=== PATIENT | female | born 1960 | race Caucasian/White ===

== ENCOUNTER 2016-06-13 15:22 | Inpatient (IN) | payer MEDICARE, OTHER ==
--- NOTE | ~2016-06-13 | HP ---
Unit #: [id number] #: [id number] Patient: IKE MARSH [id number] [address] [place], [place] [address] [id number] I MR#: [id number] NAME: IKE MARSH. ROOM: 307 Age: 56 Sex: F Admission Date: 06/13/2016 : 1960 Attending Physician: Eddie Smith Primary Care Physician: Marni Perez M.D. HISTORY AND PHYSICAL HISTORY OF PRESENT ILLNESS Patient is a 56-year-old lady with desaturation in oxygen. The patient was having significant increase in lower extremity edema. The patient is on 3 liters nasal cannula anywhere at home for severe COPD. However, the patient has had about 15 to 16 pound weight gain in approximately two weeks. The patient has a remote history of multiple pneumonias and she has had a history of hypercapnic respiratory failure. The patient is being admitted for IV diuresis. Dr. Sanchez is being consulted. We will ask them to decide on the diuretic regimen. In the meantime, we are going to continue her COPD medication and we are going to continue treatment. PAST MEDICAL HISTORY Significant for: 1. Seizure disorder, apparently recurrent. 2. Migraine headaches. 3. Diabetes mellitus. 4. Hypothyroidism. 5. Hypertension. 6. History of TIA in 1996. 7. Hyperlipidemia. 8. Depression. 9. Gastroesophageal reflux disease. 10. Diverticular disease. PAST SURGICAL HISTORY Includes: 1. UPPP. 2. Cholecystectomy. 3. x3. 4. Several ventral hernia repairs. 5. Colonoscopy. 6. Cervical spine surgery. 7. Right knee replacement. 8. Bladder repair. HOME MEDICATIONS Include: 1. Zofran 8 mg p.o. t.i.d. 2. Daliresp 500 mcg daily. 3. Coreg 6.25 mg p.o. daily. 4. K-Dur 20 mEq daily. Unit #: [id number] #: [id number] Patient: IKE MARSH 5. Furosemide 40 mg p.o. daily. 6. Hydrochlorothiazide 25 mg daily. 7. Zanaflex 20 mg daily. 8. Humulin 70/30, unknown dosage daily on a sliding scale. 9. Aspirin 81 mg daily. 10. Levothyroxine 25 mcg daily. 11. Sumatriptan succinate 50 mg p.o. at headache onset, so p.r.n. 12. Symbicort 160/4.5 two puffs b.i.d. 13. Ventolin two puffs h.s. 14. Saxenda 3 mg subcu daily. 15. Dilantin 100 mg p.o. t.i.d. 16. Topamax 100 mg p.o. daily. 17. Topamax 200 mg q.p.m. 18. Klonopin 0.5 mg b.i.d. 19. Oxycodone 15 mg q.6 h. p.r.n. REVIEW OF SYSTEMS Positive for what is in the history of present illness otherwise is negative. PHYSICAL EXAMINATION VITAL SIGNS: T. current 98.2, pulse 89, respiratory rate 20, blood pressure 174/107, saturating 91% on 3 liters nasal cannula. HEENT: Extraocular movements are intact. Pupils equal round and reactive to light. NECK: Greater than 17 inches in circumference. LUNGS: Decreased breath sounds bilaterally. HEART: Regular rate, no gallop. ABDOMEN: Soft, nontender, nondistended. Decreased bowel sounds. EXTREMITIES: 2+ edema. DIAGNOSTIC STUDIES LABORATORY: White count 6.5, hemoglobin 13.7, platelets 164. Basic metabolic sodium 139, BUN 13, creatinine 0.6, potassium . BNP 147. Glucose 169. ASSESSMENT AND PLAN 1. Patient admitted for congestive heart failure exacerbation, being diuresed. Will continue current. 2. Chronic obstructive pulmonary disease exacerbation. She denies any bronchitis type symptoms. Therefore, will not put her on a systemic steroid. We will see if patient's oxygen improves as she is being weaned. Appreciate Dr. Sanchez's significant assistance. Dictated by Linda Duke/michael TD: 06/15/2016 21:17 Unit #: [id number] #: [id number] Patient: IKE MARSH JOB #: [id number] HISTORY AND PHYSICAL X Eddie Smith MD X HISTORY AND PHYSICAL
--- NOTE | ~2016-06-13 | CO ---
Unit #: [id number] #: [id number] Patient: IKE MARSH [id number] [address] [place], [place] [address] [id number] I MR#: [id number] NAME: IKE MARSH. ROOM: 307 Age: 56 Sex: F Admission Date: 06/13/2016 : 1960 Attending Physician: Yisel Smith M.D. Primary Care Physician: Marni Perez M.D. CONSULTATION REPORT REASON FOR CONSULTATION Congestive heart failure. HISTORY OF PRESENT ILLNESS This is a 56-year-old white female who was discharged from this facility on 05/28/2015 where she was admitted with COPD exacerbation and pneumonia. Since her discharge the patient states her dyspnea has worsened. She reports five pillow orthopnea and paroxysmal nocturnal dyspnea. She is unable to walk as far as to the nurses' station without shortness of breath. She has a cough that is nonproductive. No fever or chills. She denies an increase in her fluid intake. She says she has gained 15 pounds since her discharge. She also reports burning chest pain that accompanies her dyspnea when she ambulates. She has no resting chest pain. She gives a history of lung cancer. According to a prior CT of her chest there is a nodule measuring 1.3 cm in the anterior right lower lobe that is suspicious for malignancy. She has been followed by Dr. Randy Jean and is to undergo biopsy. She has been told she has had heart failure in the past. She also is known to have high blood pressure, high cholesterol and diabetes. Cardiac catheterization in 2014 shows normal coronaries, was noted for pulmonary hypertension. PAST MEDICAL HISTORY 1. Cardiac catheterization 10/25/2014 showed an ejection fraction equal to 55% with angiographically normal coronaries. 2. Two-D echocardiogram 07/18/2015 shows an ejection fraction equal to 55% with mild concentric left ventricular hypertrophy, mild tricuspid regurgitation and mild pulmonic valvular regurgitation, right ventricular systolic pressure of 40 to 50 mmHg, (technically limited study). 3. Diastolic heart failure. 4. Hypertension. 5. Hyperlipidemia. 6. Diabetes mellitus type 2. 7. Seizure disorder. 8. Obstructive sleep apnea, noncompliant with CPAP. 9. COPD. 10. TIA. 11. Hypothyroidism. 12. Thrombocytopenia. 13. Obesity. 14. Former smoker. PAST SURGICAL HISTORY Unit #: [id number] #: [id number] Patient: IEK MARSH 1. Hysterectomy. 2. Cholecystectomy. 3. Hernia repair. 4. Cervical spinal fusion. 5. Uvuloplasty. 6. Bladder surgery. 7. Right knee replacement. SOCIAL HISTORY The patient is and disabled. She quit smoking five years ago. She denies illicit drug and alcohol use. FAMILY HISTORY Both parents had congestive heart failure. ALLERGIES No known drug allergies. HOME MEDICATIONS Home medications from recent discharge summary 1. Zofran 8 mg t.i.d. p.r.n. 2. Daliresp 500 mcg daily. 3. Carvedilol 6.25 mg daily. 4. Potassium 20 mEq daily. 5. Furosemide 40 mg daily. 6. Hydrochlorothiazide 25 mg daily. 7. Zanaflex 2 mg daily. 8. Metformin 2000 mg daily. 9. Aspirin 81 mg daily. 10. Synthroid 0.025 mg daily. 11. Zocor 50 mg daily. 12. Symbicort two puffs inhaled b.i.d. 13. Combivent two puffs q.4 h. p.r.n. 14. Saxenda 3 mg daily. 15. Dilantin 100 mg t.i.d. 16. Topamax 200 mg q.h.s. and 100 mg q.a.m. 17. Klonopin 0.5 mg b.i.d. 18. OxyContin 15 mg q.i.d. p.r.n. REVIEW OF SYSTEMS CONSTITUTIONAL: Positive for weakness and fatigue. Reports a 15 pound weight gain over the last week and a half1. HEENT: No headache, hearing or visual changes or difficulty with swallowing. Negative for dizziness. CARDIOVASCULAR: Has chest pain described in the HPI. Denies palpitations. Has five pillow orthopnea. Positive for paroxysmal nocturnal dyspnea. No syncope or near syncope. RESPIRATORY: Positive for dyspnea at rest and on exertion. Reports nonproductive cough. GASTROINTESTINAL: No abdominal pain, nausea or vomiting. Reports increase in her abdominal girth. EXTREMITIES: Positive for lower extremity edema. PHYSICAL EXAMINATION VITAL SIGNS: Blood pressure 174/107, heart rate 89, temperature 98.2, BMI 38. GENERAL: This is an obese, 56-year-old, middle-aged white female who is in no acute distress. Unit #: [id number] #: [id number] Patient: IKE MARSH NEUROLGICAL: She is awake, alert and oriented, without focal weaknesses. NECK: Trachea is midline. No thyromegaly or lymphadenopathy. No jugular venous distention. HEART: S1, S2, heart sounds are normal. No murmurs or rubs or clicks. Regular rate and rhythm. LUNGS: Lungs are diminished. Breath sounds both lungs with severely reduced air entry. No rales, rhonchi or wheezing. ABDOMEN: Soft, obese, tenderness in the right upper quadrant. EXTREMITIES: With 1+ leg edema. SKIN: Warm and dry. DIAGNOSTIC STUDIES LABORATORY: Glucose 169, BUN 13, creatinine 0.6, sodium 139, potassium 4.0. BNP during her last admission 30. White count 6.5, hemoglobin 13.7, hematocrit 39.0, platelet count 164. IMAGING: Chest x-ray pending. CARDIOVASCULAR: EKG pending. IMPRESSION 1. Severe hypoxic respiratory failure secondary to a severe chronic obstructive pulmonary disease. 2. Doubt significant fluid overload. 3. Lung nodule in the right lung, question malignancy. 4. Chronic diastolic heart failure. 5. Normal coronaries per cardiac catheterization in 2015. 6. Preserved left ventricular systolic function with an ejection fraction of 55%. 7. Hypertension. 8. Hyperlipidemia. 9. Diabetes mellitus type 2. 10. History of seizure disorder. PLAN 1. Cardiology was consulted for congestive heart failure. BNP is currently pending. Feel the patient has a volume overload. Will treat with IV diuretics. 2. Decrease beta adama to help prevent bronchospasm. 3. Workup for pulmonary nodule. 4. Questionable steroids. 5. Will follow the patient with you. Thank you for allowing us to assist with this patient's care. Dictated by... Óscar Villegas A.P.R.N. for Murtaza Bergeron M.D. JAVIER/aggie TD: 06/13/2016 18:36 JOB #: [id number] Unit #: [id number] #: [id number] Patient: IKE MARSH CONSULTATION REPORT X Óscar Villegas APRN CONSULTATION REPORT
--- NOTE | ~2016-06-13 | CR4 ---
[facility] A Service of [facility] RADIOLOGY TEXT RESULTS PATIENT: IKE MARSH LOCATION: [facility] 307- : 56 UNIT #: [id number] AGE: [address]: Eddie Smith MD SEX: F ORDER DR: [id number] [facility] [address] [place], [place] [address] [id number] I MR#: [id number] Acc #: [id number] NAME: IKE MARSH : 1960 SEX: F STUDY DATE/TIME: 06/16/2016 13:04 [facility]: [facility] STUDY DESCRIPTION: CR Abdomen Flat Upright or Dec Ordering Physician: Yisel Smith M.D. Primary Care Physician: Marni Perez M.D. MEDICAL IMAGING REPORT This report is preliminary unless electronic signature is present EXAM Flat and upright views of the abdomen INDICATIONS Generalized abdominal pain and distension for the past 2 weeks. TECHNIQUE Supine and upright views abdomen and pelvis. COMPARISON None. FINDINGS No free air. Non-obstructive bowel gas pattern. Moderate amount of colonic stool and gas. IMPRESSION Moderate colonic stool and gas. Non-obstructive bowel gas pattern. Dictated by... Preston Starkey M.D. THIS IS AN ELECTRONICALLY VERIFIED REPORT Preston Starkey M.D. at 06/18/2016 6:59 AM EED/pcl TD: 06/16/2016 16:21 JOB #: [id number] MEDICAL IMAGING REPORT COPY
--- NOTE | ~2016-06-13 | CR63 ---
[facility] A Service of [facility] & [facility] RADIOLOGY TEXT RESULTS PATIENT: IKE MARSH LOCATION: [facility] 307- : 56 UNIT #: [id number] AGE: [address]: Eddie Smith MD SEX: F ORDER DR: [id number] [facility] [address] [place], [place] [address] [id number] I MR#: [id number] Acc #: [id number] NAME: IKE MARSH : 1960 SEX: F STUDY DATE/TIME: 06/16/2016 12:56 UNIT: [address] ROOM: [facility] STUDY DESCRIPTION: CR Chest 2 View Attending Physician: Eddie Smith Ordering Physician: Eddie Smith Primary Care Physician: Marni Perez M.D. MEDICAL IMAGING REPORT This report is preliminary unless electronic signature is present EXAM Two-view chest INDICATIONS Chest pain for the past 2 weeks. TECHNIQUE Frontal and lateral views of the chest. COMPARISON 06/13/2016. FINDINGS Large cardiomegaly. Low lung volumes. Mild bibasilar atelectasis. No significant pleural fluid or pneumothorax. IMPRESSION 1. Slightly low lung volumes and bibasilar atelectasis. 2. Cardiomegaly. No significant change from the prior. Dictated by... Preston Starkey M.D. THIS IS AN ELECTRONICALLY VERIFIED REPORT Preston Starkey M.D. at 06/18/2016 6:59 AM EED/pcl TD: 06/16/2016 16:19 JOB #: [id number] MEDICAL IMAGING REPORT COPY
--- NOTE | ~2016-06-13 | US8 ---
[facility] A Service of [facility] & [facility] RADIOLOGY TEXT RESULTS PATIENT: IKE MARSH LOCATION: [facility] 307- : 56 UNIT #: [id number] AGE: [address]: Eddie Smith MD SEX: F ORDER DR: [id number] [facility] [address] [place], [place] [address] [id number] I MR#: [id number] Acc #: [id number] NAME: IKE MARSH : 1960 SEX: F STUDY DATE/TIME: 06/17/2016 8:29 UNIT: [address] ROOM: [facility] STUDY DESCRIPTION: US Abdominal Wall/Quadrant Ordering Physician: Yisel Smith M.D. Primary Care Physician: Marni Perez M.D. MEDICAL IMAGING REPORT This report is preliminary unless electronic signature is present EXAM Abdominal lower quadrant screening ultrasound for ascites HISTORY Abdominal bloating and distention. COMPARISON STUDIES CT abdomen and pelvis 05/25/2016. FINDINGS No ascites seen on either exam. Dictated by... Luke Hernandez M.D. THIS IS AN ELECTRONICALLY VERIFIED REPORT Luke Hernandez M.D. at 06/21/2016 7:06 PM TEV/pcl TD: 06/17/2016 14:03 JOB #: [id number] MEDICAL IMAGING REPORT COPY
--- NOTE | ~2016-06-13 | EKG ---
PATIENT: IKE MARSH UNIT #: [id number] Ventricular Rate: 87 BPM Atrial Rate: 87 BPM P-R Interval: 160 ms QRS Duration: 82 ms Q-T Interval: 386 ms QTC Calculation(Bezet): 464 ms P [place]: 65 degrees Calculated R [place]: 98 degrees Calculated T [place]: 68 degrees Diagnosis Line: Normal sinus rhythm Diagnosis Line: Rightward axis Diagnosis Line: Nonspecific T wave abnormality Diagnosis Line: Prolonged QT Diagnosis Line: Abnormal ECG Diagnosis Line: When compared with ECG of 24-MAY-2016 11:57, Diagnosis Line: Nonspecific T wave abnormality no longer evident Diagnosis Line: in Inferior leads Diagnosis Line: T wave inversion less evident in Anterolateral Diagnosis Line: leads Diagnosis Line: Confirmed by JITENDRA KHOURY MD ([id number]) on Diagnosis Line: 06/14/2016 8:01:31 AM INTERPRETING MD: ABDI
--- NOTE | ~2016-06-13 | CR63 ---
[facility] A Service of [facility] & [facility] RADIOLOGY TEXT RESULTS PATIENT: IKE MARSH LOCATION: [facility] 307- : 56 UNIT #: [id number] AGE: [address]: Eddie Smith MD SEX: F ORDER DR: [id number] [facility] [address] [place], [place] [address] [id number] I MR#: [id number] Acc #: [id number] NAME: IKE MARSH : 1960 SEX: F STUDY DATE/TIME: 06/13/2016 19:20 UNIT: [address] ROOM: [facility] STUDY DESCRIPTION: CR Chest 2 View Attending Physician: Eddie Smith Ordering Physician: Murtaza Bergeron M.D. Primary Care Physician: Marni Perez M.D. MEDICAL IMAGING REPORT This report is preliminary unless electronic signature is present EXAM Chest x-ray, 06/13/2016 at 1920 hours. INDICATION Fluid on lungs. Shortness of air and fever. History of lung cancer. FINDINGS 2 views of the chest are compared with 05/24/2016. Heart remains enlarged. There is a small left pleural effusion. There is atelectasis or infiltrate in both lung bases. The mid to upper lungs are clear and there is no pneumothorax. The patient is status post cervical fusion. IMPRESSION Stable cardiomegaly with mild infiltrate or atelectasis in both bases and a small left effusion. Dictated by... Guy Johnson Jr., M.D. THIS IS AN ELECTRONICALLY VERIFIED REPORT Guy Johnson Jr., M.D. at 06/14/2016 5:30 AM JEANNIE/gill TD: 06/14/2016 05:04 JOB #: [id number] MEDICAL IMAGING REPORT COPY
--- NOTE | ~2016-06-13 | DS ---
Unit #: [id number] #: [id number] Patient: IKE MARSH [id number] [address] [facility]. [place], [place] [address] [id number] I MR#: [id number] NAME: IKE MARSH. ROOM: 307 Age: 56 Sex: F Admission Date: 06/13/2016 : 1960 Discharge Date: 06/18/2016 Attending Physician: Yisel Smith M.D. Primary Care Physician: Marni Perez M.D. DISCHARGE SUMMARY ADMITTING DIAGNOSES 1. Congestive heart failure exacerbation. 2. Chronic obstructive pulmonary disease exacerbation. 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 BRIEF HISTORY AND HOSPITAL COURSE The patient is a 56-year-old lady with a lot of desaturation. She was having significant increase in lower extremity edema and desaturation in the office. The patient was brought to the hospital. She is on three liters nasal cannula at home for severe COPD. The patient was having a 15 to 16 pound weight gain approximately past two weeks. She has a remote history of multiple pneumonia. She also has a history of significant hypercapnic respiratory failure. The patient is having no fevers, chills, cough, congestion or symptoms of upper respiratory tract infection. She is having progressive shortness of air. She is having increase cough but it is not productive. The patient is admitted for IV diuresis. The patient had a significant improvement in her hypoxia. She was on her home medications. Physical Therapy said the patient was close to her baseline, therefore, she can return home without any difficulty. She is having continued diastolic heart failure. The patient has diminished breath sounds and needs to increase her activity. The patient is being discharged on three liters nasal cannula. She has received four or five days of Rocephin while here for COPD exacerbation/pneumonia. The patient is now having more shortness of air and will increase her activity. The diastolic heart failure is being managed by Cardiology. The patient also has a right lung nodule which will require followup imaging. The patient is having relatively good control of her diabetes. The patient was not placed on steroids this hospitalization. DISCHARGE MEDICATIONS 1. 70/30 on sliding scale. 2. Saxenda 3 mg subcu daily. 3. Lisinopril 5 mg daily. 4. Dilantin 100 mg p.o. t.i.d. 5. Furosemide 40 mg p.o. b.i.d. 6. Zomig or sumatriptan succinate tablet 50 mg p.o. p.r.n. 7. Coreg 3.125 mg twice daily. 8. Omnicef 300 mg p.o. b.i.d. for three days. 9. Levothyroxine 25 mcg daily. 10. Zanaflex 2 mg daily. 11. Roflumilast 500 mg daily. Unit #: [id number] #: [id number] Patient: IKE MARSH 12. Potassium chloride 40 mEq p.o. daily. 13. Aldactone 12.5 mg p.o. daily. 14. Oxycodone 15 mg p.o. q.6 hours p.r.n. pain. 15. Aspirin 81 mg daily. 16. Klonopin 0.5 mg p.o. b.i.d. p.r.n. 17. Zofran 8 mg p.o. t.i.d. p.r.n. nausea. 18. Gemfibrozil 600 mg p.o. twice daily. 19. Topamax 200 mg every evening and 100 mg every morning. 20. Symbicort two puffs b.i.d. 21. Albuterol two puffs at bedtime and as needed. DIET No concentrated sweets. ACTIVITY As tolerated. FOLLOWUP With Dr. Shaw in two weeks. Follow up with Dr. Sanchez on August 17, 2016 at 11:30 a.m. Dictated by... Linda Duke/gonzalo TD: 06/19/2016 13:46 JOB #: [id number] DISCHARGE SUMMARY X Eddie Smith MD X DISCHARGE SUMMARY
--- NOTE | ~2016-06-13 | EKG ---
PATIENT: IKE MARSH UNIT #: [id number] Ventricular Rate: 86 BPM Atrial Rate: 86 BPM P-R Interval: 170 ms QRS Duration: 82 ms Q-T Interval: 396 ms QTC Calculation(Bezet): 473 ms P [place]: 58 degrees Calculated R [place]: 93 degrees Calculated T [place]: 69 degrees Diagnosis Line: Normal sinus rhythm Diagnosis Line: Rightward axis Diagnosis Line: Nonspecific T wave abnormality Diagnosis Line: Prolonged QT Diagnosis Line: Abnormal ECG Diagnosis Line: When compared with ECG of 13-JUN-2016 18:51, Diagnosis Line: (unconfirmed) Diagnosis Line: No significant change was found Diagnosis Line: Confirmed by JITENDRA KHOURY MD ([id number]) on Diagnosis Line: 06/14/2016 8:08:18 AM INTERPRETING MD: ABDI
--- NOTE | ~2016-06-13 | BMI ---
[facility] Nutrition Therapy DATE: 06/14/16 Patient: IKE MARSH Physician: CONNIE Address: [address] [place] [address] Room/Bed: [address] [place] [address], Zip: [place] [address] Admit Date: 06/13/16 Date of : 56 Height: Weight: 251 114 HIGH BMI NOTE: ANTHROPOMETRICS: HT: 64" WT: 114 KG BMI: 43.1 INTERVENTION: 1. 2 GRAM NA+/ FLUID RESTRICTION RECOMMENDATIONS: 1. ADD HEART HEALTHY DIET RESTRICTION IN ORDER TO PROMOTE GRADUAL WEIGHT LOSS. Respectfully, KYLAH GRACE RD, LD [facility] cc: client file
[~2016-06-13 15:22] MED LIST: ALBUTEROL MININEB NEB; ALBUTEROL17 GM INH; AMOXICILLIN500 M1 PO; ASPIRIN EC81 M1 PO; ASPIRIN81 M2 PO; ASPIRIN81 MG PO; ATARAX PO; CARVEDILOL6.25 MG PO; CEFTIN PO; CLONAZEPAM0.5 MG PO; COREG6.25 MG PO; DALIRESP500 MCG PO; DEPAKOTE; DESYREL50 MG PO; DIAZEPAM; DILANTIN; DILANTIN KAPSE100 MG PO; DILANTIN PO; DIOVAN160 MG DOB; FLEXERIL PO; FUROSEMIDE40 MG PO; GLUCOPHAGE500 M1 PO; HYDRALAZINE HCL50 MG PO; HYDROCHLOROTHIA25 MG PO; K-DUR20 ME1 PO; K-DUR20 ME2 PO; K-TAB ER20 MEQ PO; KCL; KLONOPIN0.5 M3 PO; LASIX; LASIX PO; LASIX80 MG PO; LEVAQUIN750 MG PO; LEVOFLOXACIN500 MG PO; LIPITOR20 MG PO; LOPID600 MG PO; LOPRESSOR PO; LOW DOSE ASPIRI81 M1 PO; LYRICA100 MG PO; MEDROL DOSEPAK4 MG PO; METFORMIN HCL1000 M1 PO; METFORMIN HCL1000 M2 PO; METFORMIN PO; METOPROLOL TAR25 MG PO; NITROSTAT0.4 MG SL; NOVOLOG100 U/ML SUBQ; OXYCODONE15 M1 DOB; OXYCODONE15 M1 PO; OXYCONTIN15 MG PO; PERCOCET; PERCOCET 5-3251 TAB PO; POTASSIUM99 M2 PO; PREDNISONE10 MG/DOSE PO; PREDNISONE50 MG PO; PROAIR HFA8.5 GM IH; PROMETHAZINE D118 ML PO; PROTONIX PO; PULMICORT90 MCG/AER IH; ROBITUSSIN A-C S5 ML PO; ROXICODONE15 MG PO; SAXENDA3 MG/0.5 M; SERTRALINE HCL100 M1 PO; SPIRIVA18 MCG INH; SUMATRIPTAN SUC50 M1 PO; SYMBICORT INH; SYNTHROID0.05 MG PO; SYNTHROID0.2 MG DOB; SYNTHROID0.2 MG PO; TIZANIDINE HCL2 M1 PO; TIZANIDINE HCL2 MG PO; TOPAMAX; TOPAMAX PO; TOPAMAX200 MG PO; TORADOL10 MG PO; TRAZODONE; TYLENOL325 M1 PO; ZANTAC; ZESTORETIC 20/21 TAB; ZITHROMAX PO; ZOCOR PO; ZOFRAN8 MG PO; ZOLOFT100 MG PO
[2016-06-13 17:19] LABS: HEMOGLOBIN 13.7 gm/dL (12.0-16.0); MEAN CELL VOLUME 98.8 FL (83-96); MEAN CORPUSCULAR HEMOGLOBIN 34.7 PG (28-34); MEAN CORPUSCULAR HGB CONC 35.1 g/dL (30-36); MEAN PLATELET VOLUME 7.2 FL (6.5-11.5); RED BLOOD COUNT 3.95 X10e (3.90-5.30); RED CELL DISTRIBUTION WIDTH 15.4 % (11.0-15.5); WHITE BLOOD COUNT 6.5 X10e3 (4.0-10.5)
[2016-06-13] MEDS ORDERED: DALIRESP500 MCG PO (17:29)
[2016-06-13] MEDS ORDERED: ONDANSETRON HCL8 MG PO (17:29)
[2016-06-13] MEDS ORDERED: COREG6.25 MG PO (17:31)
[2016-06-13] MEDS ORDERED: K-DUR20 ME2 PO (17:31)
[2016-06-13] MEDS ORDERED: HYDROCHLOROTHIA25 MG PO (17:32)
[2016-06-13] MEDS ORDERED: FUROSEMIDE40 MG PO (17:32)
[2016-06-13 17:33] LABS: BLOOD UREA NITROGEN 13 mg/dL (9-23); BUN/CREATININE RATIO 21.66; CALCIUM SERUM 8.9 mg/dL (8.4-10.2); CARBON DIOXIDE 32 mmol/L (22-31); CHLORIDE 100 mmol/L (100-111); CREATININE SERUM 0.6 mg/dL (0.6-1.4); GLOM FILT RATE Estimated ABOVE60 mL/min (>60); GLUCOSE FASTING 169 mg/dL (70-110); SODIUM 139 mmol/L (135-145)
[2016-06-13] MEDS ORDERED: TIZANIDINE HCL2 MG PO (17:33)
[2016-06-13] MEDS ORDERED: HUMULIN N100 UNIT/1 (17:33)
[2016-06-13] MEDS ORDERED: HUMULIN 70100 UNIT/2 SUBQ (17:37)
[2016-06-13] MEDS ORDERED: LEVOTHYROXINE25 MCG PO (17:38)
[2016-06-13] MEDS ORDERED: ASPIRIN81 MG PO (17:38)
[2016-06-13] MEDS ORDERED: SUMATRIPTAN SUC50 MG PO (17:39)
[2016-06-13] MEDS ORDERED: SYMBICORT INH (17:40)
[2016-06-13 17:41] LABS: ARTERIAL BLD GAS O2 SATURATION 94.7 % (90.0-100.0); ARTERIAL BLOOD GAS CARBOXY HB 1.4 %sat (0.0-9.0); ARTERIAL BLOOD GAS HCO3 35.2 mmol/L; ARTERIAL BLOOD GAS PO2 86.5 mmHg (80.0-100)
[2016-06-13 17:42] LABS: ARTERIAL BLOOD GAS ART SITE RIGHT RADIAL; ARTERIAL BLOOD GAS DELIVERY NASAL CANNULA; ARTERIAL BLOOD GAS FIO2 0.32 %; ARTERIAL BLOOD GAS PCO2 61.1 mmHg (35.0-45.0); ARTERIAL DRAW? YES
[2016-06-13] MEDS ORDERED: ALBUTEROL17 GM INH (17:42)
[2016-06-13] MEDS ORDERED: SAXENDA3 MG/0.5 M SUBQ (17:43)
[2016-06-13] MEDS ORDERED: DILANTIN PO (17:43)
[2016-06-13] MEDS ORDERED: TOPAMAX PO (17:44)
[2016-06-13] MEDS ORDERED: TOPAMAX200 MG PO (17:45)
[2016-06-13] MEDS ORDERED: KLONOPIN0.5 MG PO (17:58)
[2016-06-13] MEDS ORDERED: OXYCODONE15 M1 PO (22:42)
[2016-06-15 08:12] LABS: BASOPHIL% 0.4 % (0-2.5); EOSINOPHIL# 0.1 X10e3 (0-0.7); EOSINOPHIL% 1.6 % (0.0-7.0); HEMATOCRIT 38.3 % (35.0-45.0); HEMOGLOBIN 13.3 gm/dL (12.0-16.0); LYMPHOCYTE# 2.4 X10e3 (1.0-3.5); LYMPHOCYTE% 32.5 % (17.0-45.0); MEAN CELL VOLUME 100.6 FL (83-96); MEAN CORPUSCULAR HEMOGLOBIN 34.9 PG (28-34); MEAN CORPUSCULAR HGB CONC 34.7 g/dL (30-36); MONOCYTE# 0.5 X10e3 (0-1.0); MONOCYTE% 7.3 % (3.0-12.0); NEUTROPHIL# 4.2 X10e3 (1.5-7.1); NEUTROPHIL% 58.2 % (40-75); PLATELET COUNT 157 X10e3 (140-420); RED BLOOD COUNT 3.81 X10e (3.90-5.30); RED CELL DISTRIBUTION WIDTH 15.5 % (11.0-15.5); WHITE BLOOD COUNT 7.3 X10e3 (4.0-10.5)
[2016-06-15 08:18] LABS: DIFF IND NO
[2016-06-15 08:38] LABS: BUN/CREATININE RATIO 24.54; CALCIUM SERUM 8.7 mg/dL (8.4-10.2); CREATININE SERUM 1.1 mg/dL (0.6-1.4); GLOM FILT RATE Estimated 54.2 mL/min (>60); POTASSIUM 4.4 mmol/L (3.5-5.1)
[2016-06-16 05:46] LABS: BASOPHIL% 0.3 % (0-2.5); EOSINOPHIL# 0.1 X10e3 (0-0.7); EOSINOPHIL% 2.1 % (0.0-7.0); HEMATOCRIT 38.8 % (35.0-45.0); HEMOGLOBIN 12.9 gm/dL (12.0-16.0); LYMPHOCYTE# 1.9 X10e3 (1.0-3.5); LYMPHOCYTE% 32.2 % (17.0-45.0); MEAN CELL VOLUME 101.3 FL (83-96); MEAN CORPUSCULAR HEMOGLOBIN 33.6 PG (28-34); MEAN CORPUSCULAR HGB CONC 33.2 g/dL (30-36); MEAN PLATELET VOLUME 7.9 FL (6.5-11.5); MONOCYTE# 0.5 X10e3 (0-1.0); MONOCYTE% 8.7 % (3.0-12.0); NEUTROPHIL# 3.4 X10e3 (1.5-7.1); NEUTROPHIL% 56.7 % (40-75); PLATELET COUNT 148 X10e3 (140-420); RED BLOOD COUNT 3.83 X10e (3.90-5.30); RED CELL DISTRIBUTION WIDTH 15.6 % (11.0-15.5)
[2016-06-16 05:51] LABS: DIFF IND NO
[2016-06-16 06:36] LABS: BUN/CREATININE RATIO 25.38; CALCIUM SERUM 8.6 mg/dL (8.4-10.2); CREATININE SERUM 1.3 mg/dL (0.6-1.4); GLOM FILT RATE Estimated 44.7 mL/min (>60); POTASSIUM 4.8 mmol/L (3.5-5.1)
[2016-06-17 05:26] LABS: HEMOGLOBIN 12.7 gm/dL (12.0-16.0); MEAN CELL VOLUME 102.4 FL (83-96); MEAN CORPUSCULAR HEMOGLOBIN 34.3 PG (28-34); MEAN CORPUSCULAR HGB CONC 33.5 g/dL (30-36); MEAN PLATELET VOLUME 7.7 FL (6.5-11.5); RED BLOOD COUNT 3.71 X10e (3.90-5.30); RED CELL DISTRIBUTION WIDTH 15.6 % (11.0-15.5); WHITE BLOOD COUNT 5.9 X10e3 (4.0-10.5)
[2016-06-17 06:27] LABS: BUN/CREATININE RATIO 28.66; CALCIUM SERUM 8.9 mg/dL (8.4-10.2); CREATININE SERUM 1.5 mg/dL (0.6-1.4); GLOM FILT RATE Estimated 37.9 mL/min (>60); MAGNESIUM 2.5 mg/dL (1.6-3.0); POTASSIUM 4.5 mmol/L (3.5-5.1)
[2016-06-17 21:43] LABS: URINE SOURCE CLEAN CATCH
[2016-06-17 22:02] LABS: URINE APPEARANCE CLEAR; URINE BILIRUBIN NEG (NEG); URINE BLOOD NEG (NEG); URINE COLOR YELLOW; URINE GLUCOSE NEG (NEG); URINE KETONE NEG (NEG); URINE LEUKOCYTE ESTERASE NEG (NEG); URINE NITRATE NEG (NEG); URINE PROTEIN NEG (NEG); URINE SPECIFIC GRAVITY 1.018 (1.003-1.035); URINE UROBILINOGEN 0.2 MG/DL (NEG)
[2016-06-18 04:57] LABS: BUN/CREATININE RATIO 37.27; CALCIUM SERUM 9.1 mg/dL (8.4-10.2); CREATININE SERUM 1.1 mg/dL (0.6-1.4); GLOM FILT RATE Estimated 54.2 mL/min (>60)
[2016-06-18] MEDS ORDERED: KLOR-CON PO (18:36)
[2016-06-18] MEDS ORDERED: OMNICEF300 MG PO (18:40)
[2016-06-18] MEDS ORDERED: PRINIVIL5 MG PO (18:41)
[2016-06-18] MEDS ORDERED: ALDACTONE PO (18:42)
[2016-06-18] MEDS ORDERED: LASIX PO (18:42)
[2016-06-18] MEDS ORDERED: LOPID600 MG PO (18:43)
== END 2016-06-18 20:04 | disposition home or self-care (01) | DRG 291 ==
LOC: C3A PCU 15:22
PROVIDERS: Internal Medicine Pulmonary Disease; Nurse Practitioner
DX: I11.0 Hypertensive heart disease with heart failure (principal); J96.01 Acute respiratory failure with hypoxia; J44.1 Chronic obstructive pulmonary disease with (acute) exacerbation; D69.6 Thrombocytopenia, unspecified; E66.01 Morbid (severe) obesity due to excess calories; I50.33 Acute on chronic diastolic (congestive) heart failure; G40.909 Epilepsy, unspecified, not intractable, without status epilepticus; G43.909 Migraine, unspecified, not intractable, without status migrainosus; E11.9 Type 2 diabetes mellitus without complications; E03.9 Hypothyroidism, unspecified; E78.5 Hyperlipidemia, unspecified; F32.9 Major depressive disorder, single episode, unspecified; K21.9 Gastro-esophageal reflux disease without esophagitis; K57.90 Diverticulosis of intestine, part unspecified, without perforation or abscess without bleeding; Z86.73 Personal history of transient ischemic attack (TIA), and cerebral infarction without residual deficits; Z90.49 Acquired absence of other specified parts of digestive tract; Z96.651 Presence of right artificial knee joint; Z79.4 Long term (current) use of insulin; Z79.82 Long term (current) use of aspirin; I08.8 Other rheumatic multiple valve diseases; Z91.19 Patient's noncompliance with other medical treatment and regimen; Z90.710 Acquired absence of both cervix and uterus; R91.1 Solitary pulmonary nodule
CPT/HCPCS: 36600; 71020; 74020; 76705; 80048; 81003; 82308; 82803; 82947; 83735; 83880; 84484; 85025; 85027; 87086; 93005; 94640; 94664; 94760; 97161; G8978-GP; G8979-GP; G8980-GP; J0696; J1650; J1815; J1940; J2270

== ENCOUNTER 2016-08-29 15:20 | Inpatient (IN) | payer MEDICARE, OTHER ==
--- NOTE | ~2016-08-29 | CT71 ---
[facility] A Service of [facility] RADIOLOGY TEXT RESULTS PATIENT: IKE MARSH LOCATION: [facility] [place] [facility] 576-01 : 56 UNIT #: [id number] AGE: [address]: Stephanie Solitario MD SEX: F ORDER DR: [id number] [facility] [address] [place], [place] [address] [id number] I MR#: [id number] Acc #: [id number] NAME: IKE MARSH : 1960 SEX: F STUDY DATE/TIME: 08/29/2016 17:35 UNIT: [facility] [place] [facility] ROOM: [facility] STUDY DESCRIPTION: CT Head Wo Contrast Attending Physician: Patricia Carcamo M.D. Ordering Physician: Myron Dye M.D. Primary Care Physician: Marni Perez M.D. MEDICAL IMAGING REPORT This report is preliminary unless electronic signature is present EXAM CT brain without contrast media, 08/29/2016 COMPARISON 04/25/2016 HISTORY SUPPLIED Shortness of breath, hypotension, headache for 3 days. TECHNIQUE Axial imaging of the brain was performed without contrast media and compared directly to the patient's most recent study of April 25. This CT exam was performed with one or more of the following radiation dose reduction techniques: automatic exposure control, adjustment of mA and/or kV according to patient size, and iterative reconstruction. FINDINGS Intracranially the ventricles and CSF-containing spaces are normal. No intra or extraaxial mass lesions, fluid collections or mass effect are seen. No focal areas of low attenuation or evidence of acute hemorrhage. There is a prominent perivascular space on the left in the inferior basal ganglia. Bone windows again show evidence of extensive left maxillary sinus disease as well as chronic right maxillary sinus disease. Question is raised of polyps in the nasopharynx on the left as well. CONCLUSION 1. Negative noncontrast CT of the brain. 2. Chronic maxillary sinus disease with complete opacification of the left maxillary sinus which is unchanged. Question is raised of [facility] A Service of [facility] RADIOLOGY TEXT RESULTS PATIENT: IKE MARSH LOCATION: [facility] [place] [facility] 576-01 : 56 UNIT #: [id number] AGE: [address]: Stephanie Solitario MD SEX: F ORDER DR: polyps in the left side and nasopharynx posteriorly. Consider ENT evaluation as an outpatient. Dictated by... Jonny Lao M.D. THIS IS AN ELECTRONICALLY VERIFIED REPORT Jonny Lao M.D. at 08/31/2016 4:41 PM SIDDHARTHA/gill TD: 08/29/2016 21:46 JOB #: [id number] MEDICAL IMAGING REPORT Page 1 of 1 COPY
--- NOTE | ~2016-08-29 | CO ---
Unit #: [id number] #: [id number] Patient: IKE MARSH [id number] [facility] [address] [facility]. [place], [place] [address] [id number] MR#: [id number] NAME: IKE MARSH ROOM: 576 Age: 56 Sex: F Admission Date: 08/29/2016 : 1960 Attending Physician: Stephanie Solitario M.D. Primary Care Physician: Marni Perez M.D. Consultation Date: 08/30/2016 CONSULTATION REPORT CONSULTING PHYSICIAN Dr. Patricia Carcamo. REASON FOR CONSULT Multiple seizures. PATIENT IDENTIFICATION This is a 56-year-old right-handed female evaluated in room [address] [facility]. SOURCE OF INFORMATION Obtained from the patient as well as the medical record. HISTORY OF PRESENT ILLNESS This is a 56-year-old right-handed female with a past medical history of COPD, chronic respiratory failure, CHF, migraines, diabetes mellitus type 2, hypertension, hyperlipidemia, TIA, seizure disorder, hypothyroidism who presents to [facility] with complaints of shortness of air. 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 She reports that she is having multiple seizures almost daily. She states "I have seven different types of seizures." She has been seen here in the past, last by Dr. Antony in December 2015. At that time, she was on three antiepileptics and was started on Lyrica. She is not currently on Lyrica and she states she does not recall ever being on that medication. She states she was instructed to follow up with [facility], though she states she was not able to meet her appointment as she was in the hospital at that time. She states she is now on the waiting list to be seen at [facility]. She states that she was diagnosed with seizures at the age of 38. She is now 56. She states that she initially saw Dr. Waldrop and did epilepsy monitoring and had no abnormalities there. She states she was continued on seizure medication and went to see a different physician. She reports that she does not remember who that was. She states that she was doing well with that physician on the medicines she was on. She states she was on Dilantin, Depakote, and Topamax and did not have seizures for several years. She was eventually weaned off her medications, she states. She reports that she then started having seizures again last year and is having increased frequency. She states she is compliant with her Dilantin though her level on this admission is less than 2.5. Her level in May was less than 2.5. Her level in April was less than 2.5. It looks like her level in 2005 was less than 2. She reports compliance but states that she "pees a lot of her medicine out on Lasix." She denies missing her medications otherwise and is Unit #: [id number] #: [id number] Patient: IKE MARSHant that she takes her medication. Her med rec shows that she is on Dilantin 100 mg t.i.d. though she states she takes a 100 mg pill twice a day. She states that her PCP manages her seizure medications at this time while she is waiting to get into the epilepsy clinic. She had a head CT done here without contrast yesterday that is negative. It does show chronic maxillary sinus disease with complete opacification of the left maxillary sinus unchanged, possible polyps on the left side and nasopharynx posteriorly. Consider ENT evaluation as an outpatient. Otherwise, her brain is normal. She states that she has not ever had a MRI of the brain and that she cannot have one as she had a metal plate placed by Dr. Castañeda 20 years ago. She states that she was told by him that she could never have a MRI and she refused to have a MRI. Her urine tox screen is unremarkable. She states that she has chronic migraines and does have a mild headache currently but denies any other neurologic symptoms and states that she feels pretty good. She is exhibiting some shortness of air with ambulation and she is being treated by pulmonology for related diagnoses. She reports she had a seizure event yesterday that was generalized with loss of consciousness. She states that she had incontinence and postictal state. She states that she was initially confused and fatigued. She reports that she has "seven different types of seizures." She states that she sometimes "will talk out of her head." She states many times she has generalized events with loss of consciousness; however, she states some events she can hear everything going on around her even whenever she passes out. However, sometimes she states that she completely loses consciousness and does not hear anything and with those events, she is fatigued and confused. She states that she has no trouble tolerating her Topamax and that she takes those for seizures as well. PAST MEDICAL HISTORY 1. Admission to [facility], June 13 through June 18, 2016 for CHF and COPD exacerbation. 2. Chronic respiratory failure on 3 L of oxygen per nasal cannula and COPD, followed by Dr. Smith. 3. Congestive heart failure. She had an echocardiogram on July 10, 2015, that showed an ejection fraction of 55%. She has been followed by [facility] in the past. 4. Seizure disorder. Please see details above for her seizure disorder. Reportedly, last seizure was yesterday. She states that she has been having seizures almost daily, though not every day for the last nine months. 5. Migraines: She states are pretty well controlled. 6. Diabetes mellitus type. 7. Hypothyroidism. 8. Hypertension. 9. Hyperlipidemia. 10. History of TIA in the remote past, details unclear. 11. GERD. 12. Depression. 13. Diverticular disease. 14. Morbid obesity. 15. Uvuloplasty. 16. Bladder surgery. 17. Right knee surgery. 18. Hysterectomy. 19. Hernia repair. 20. Cholecystectomy. 21. Cervical spinal fusion. Unit #: [id number] #: [id number] Patient: IKE MARSH ALLERGIES No known drug allergies. HOME MEDICATIONS 1. Zofran 8 mg p.o. t.i.d. 2. Daliresp 500 mcg p.o. daily. 3. Tizanidine 2 mg p.o. daily. 4. Humulin 70/30 insulin per sliding scale with meals. 5. Aspirin 81 mg p.o. daily. 6. Levothyroxine sodium 25 mcg p.o. daily. 7. Sumatriptan 50 mg p.o. for migraine onset. 8. Symbicort 160/4.5 mcg two puffs inhalation b.i.d. 9. Ventolin two puffs inhalation at bedtime. 10. Saxenda 3 mg subcutaneous daily. 11. Dilantin 100 mg p.o. b.i.d. per the patient. 12. Topamax 100 mg daily with 200 mg at night. 13. Klonopin 0.5 mg p.o. b.i.d. p.r.n. anxiety. 14. Oxycodone 15 mg p.o. q.6 hours p.r.n. pain. 15. Potassium chloride 40 mEq p.o. daily. 16. Omnicef 300 mg p.o. b.i.d. for possible pneumonia x3 days. 17. Prinivil 5 mg p.o. daily. 18. Furosemide 40 mg p.o. b.i.d. 19. Aldactone 25 mg p.o. daily. 20. Lopid 600 mg p.o. b.i.d. FAMILY HISTORY Noncontributory to the presenting condition. She denies a family history of epilepsy or seizures. SOCIAL HISTORY The patient is and lives with her . She quit smoking five years ago. She walks without assistance. She denies illicit drug use or alcohol abuse. REVIEW OF SYSTEMS A 14-point review of systems was done. Pertinent positives were as discussed above, otherwise negative. PHYSICAL EXAMINATION VITAL SIGNS: Temperature 99.1, otherwise she has been afebrile on this admission. Pulse 79, respirations 20, blood pressure 124/76, oxygen saturation 93% on 3 L. Blood pressure on arrival is 145/71. Height 5 feet 3 inches, weight 265 pounds. BMI is 47. NEUROLOGIC: Patient is awake, alert, and oriented to person, place, and time as well as event. She has no right/left confusion. No finger agnosia. No aphasia, dysarthria, or apraxia. Her general fund of knowledge is intact. She can follow commands without difficulty and have normal discussion and answer questions appropriately. CRANIAL NERVES: She demonstrates full pinto of vision. Eyes are conjugate without ptosis or nystagmus. Extraocular movements are intact. Sensation of the face and scalp is intact. Strength of muscles of facial expression is intact. Hearing is intact to finger rub and conversation. Tongue is midline. Uvula is midline. Palate elevation is normal. Head turning and shoulder shrug is unremarkable. Neck is supple. MOTOR: She demonstrates normal bulk and tone. Strength is equal, 5/5 in all extremities. SENSORY: Intact. Unit #: [id number] #: [id number] Patient: IKE MARSH GAIT: Essentially unremarkable. She does have difficulty due to some shortness of breath with ambulating. I did assist her with ambulating to the bedside commode after my evaluation and she did so independently but did complain of shortness of air. Romberg deferred. REFLEXES: Unable to illicit. Toes were mute. COORDINATION: No past pointing seen. DIAGNOSTIC STUDIES Please see above. LABORATORY: Troponin less than 0.03. BMP unremarkable other than a CO2 of 32, glucose 263. TSH 0.49. PT 10.4, INR 1. White blood cell count 6.4, hemoglobin 12.1, hematocrit 37.4, platelet count 194,000. CK 32. Urine drug screen unremarkable. Urinalysis: Two plus leuks, 25-50 white blood cells, negative for bacteria. Culture pending. BNP 167. Repeat troponin less than 0.05. A pH 7.347, pCO2 of 56.8, pO2 of 78.5, bicarbonate 31.1. On 3 L nasal cannula on arrival. White blood cell count 7.4, hemoglobin 11.8, hematocrit 36, platelet count 199,000. PT 10.2, INR 1, PTT 24.2. IMPRESSION 1. Recurrent seizures plus/minus pseudoseizures. 2. Subtherapeutic Dilantin less than 2.5 on repeated admissions. The patient reports compliance. 3. Chronic obstructive pulmonary disease exacerbation. 4. Acute on chronic respiratory failure. 5. Possible urinary tract infection, culture pending. 6. Migraines. 7. History of remote transient ischemic attack. Patient is on aspirin. PLAN The patient is stable with no current seizure activity. She is adamant that she takes Dilantin, though she has essentially no Dilantin in her system on repeated admissions. She states that she is able to tolerate and has been controlled in the past with it. Will load her with 1 g of Dilantin and change her dosing to 300 mg p.o. nightly. Will increase her Topamax to 200 mg p.o. b.i.d. Will request an EEG. We recommend a MRI as she has not had one, though she states she cannot tolerate due to a metal plate in her neck and was told by Dr. Castañeda that she could never have a MRI. She refuses a MRI at this time or evaluation for MRI. Will follow closely. Further recommendations pending workup and further clinical course. Recommend outpatient epilepsy monitoring and evaluation when possible. Please call for any questions or issues. Case discussed with Dr. Hickman and he agrees with above. We will follow along with you. Dictated by... Linda Boykin A.P.R.N. for Linda Santiago/tiffanie TD: 08/30/2016 10:53 JOB #: [id number] Unit #: [id number] #: [id number] Patient: IKE MARSH CONSULTATION REPORT Page 1 of 1 X Linda Boykin BEAN DUMPER X CONSULTATION REPORT
--- NOTE | ~2016-08-29 | EE ---
Unit #: [id number] #: [id number] Patient: IKE MARSH [id number] [address] [address] [id number] I MR#: [id number] NAME: IKE MARSH : 1960 SEX: F STUDY DATE/TIME: UNIT: [facility] ROOM: 576 STUDY DESCRIPTION: EEG Attending Physician: Stephanie Solitario M.D. Primary Care Physician: Marni Perez M.D. NEURODIAGNOSTICS REPORT CHIEF COMPLAINT Seizures. DESCRIPTION EEG was obtained in the awake and asleep states using the 10-20 international montage system with photic stimulation. EEG showed well organized 7 Hz range background activity from posterior regions, which is symmetric between the hemispheres. There were no epileptiform discharges present, and there were no focal signs. There was no response to photic stimulation. Normal stage II sleep was captured during the recording. IMPRESSION Findings are consistent with mild diffuse cerebral dysfunction. However, there is no evidence for increased seizure tendency on this recording. Dictated by... Linda Santiago/aspen TD: 08/31/2016 07:48 JOB #: [id number] NEURODIAGNOSTICS REPORT Page 1 of 1 X Jeremy Hickman MD NEURODIAGNOSTICS REPORT
--- NOTE | ~2016-08-29 | HP ---
Unit #: [id number] #: [id number] Patient: IKE MARSH [id number] [address] [place], [place] [address] [id number] I MR#: [id number] NAME: IKE MARSH. ROOM: 03157 Age: 56 Sex: F Admission Date: 08/29/2016 : 1960 Attending Physician: Patricia Carcamo M.D. Primary Care Physician: Marni Perez M.D. HISTORY AND PHYSICAL CHIEF COMPLAINT Short of air, hypotension. HISTORY OF PRESENT ILLNESS The patient is a 56-year-old female with past medical history of multiple medical problems including chronic respiratory failure, COPD, CHF, seizures, diabetes, migraine headaches, hypothyroidism, hypertension, hyperlipidemia, TIA, GERD, depression, diverticular disease, who presented to the emergency department for evaluation of the above. The patient states that she has had a two to three-day history of increasing shortness of breath and nonproductive cough. She reports intermittent chills but no documented fever. She denies any chest pain. She has had decreased appetite but no vomiting or diarrhea. She noticed increasing lower extremity swelling yesterday. She does not typically weigh herself. At home, she noticed that her oxygen saturation was in the 70s on her home [address] Smith's office and was told to come to the emergency department for evaluation. Upon arrival in the emergency department, temperature was 98.6, oxygen saturation is documented as 82% on room air, blood pressure 145/71, respiratory rate 24. Chest x-ray shows no acute abnormality. She was given 125 mg Solu-Medrol in the emergency department. She is being admitted to [facility] for evaluation and further treatment. PAST MEDICAL HISTORY 1. Admission to [facility] 06/13 through 06/18/2016 for CHF and COPD exacerbation. 2. COPD followed by Dr. Smith. 3. Chronic respiratory failure on 3 liters of oxygen per nasal cannula continuous. 4. Congestive heart failure. Per consultation note from Cardiology from 06/13/2016, the patient had an echocardiogram 07/10/2015 that showed an ejection fraction of 55%. She has seen Dr. Ummat in the past. 5. Seizure disorder. The patient states that she initially had a seizure at the age of 39 and was on antiepileptic medication. She then went about six years without any seizures. She was taken off her antiepileptic medication and continued to not have any seizures until about a year ago. She has been having frequent seizures since that time. Her primary care physician has been managing her seizures. She is reportedly on Dilantin. She has not been able to see a neurologist. 6. Migraine headaches. Unit #: [id number] #: [id number] Patient: IKE MARSH 7. Diabetes. 8. Hypothyroidism. 9. Hypertension. 10. Hyperlipidemia. 11. History of TIA. 12. GERD. 13. Depression. 14. Diverticular disease. PAST SURGICAL HISTORY 1. Uvuloplasty. 2. Bladder surgery. 3. Right knee surgery. 4. Hysterectomy. 5. Hernia repair. 6. Cholecystectomy. 7. Cervical spinal fusion. ALLERGIES No known allergies. HOME MEDICATIONS Include: 1. Ondansetron. 2. Daliresp. 3. Tizanidine. 4. Humulin 70/30. 5. Aspirin. 6. Levothyroxine. 7. Sumatriptan. 8. Symbicort. 9. Ventolin. 10. Saxenda. 11. Dilantin. 12. Topamax. 13. Klonopin. 14. Oxycodone. 15. Potassium. 16. Prinivil. 17. Lasix. 18. Aldactone. 19. Gemfibrozil. Home medications will need to be reviewed and verified. SOCIAL HISTORY The patient lives with her . She quit smoking five years ago. She walks without assistance. Her code status is a FULL CODE. FAMILY HISTORY Notable for both parents having diabetes, COPD, and CHF. REVIEW OF SYSTEMS A complete review of systems is negative except as indicated in the HPI. The patient and her state that she has had at least two seizures within the past 24 hours, the most recent of which was yesterday. PHYSICAL EXAMINATION Unit #: [id number] #: [id number] Patient: IKE MARSH VITAL SIGNS: Temperature 98.6, pulse 92, respirations 24, blood pressure 145/71, oxygen saturation is 82% on room air. GENERAL: The patient is a female who is awake and alert in no acute distress. HEENT: Head is atraumatic. Mucous membranes are moist. NECK: Supple. Trachea is midline. LUNGS: Demonstrate inspiratory and expiratory wheezes. Breathing is mildly labored with conversation. HEART: Regular rate and rhythm. ABDOMEN: Obese, soft, nontender. Bowel sounds present in all four quadrants. EXTREMITIES: Nontender. She does have 1+ pitting edema. NEUROLOGIC: Patient is awake and alert. She is oriented x3. She follows commands. PSYCHIATRIC: Patient has a flat affect. SKIN OF EXAMINED AREAS: Warm and dry. DIAGNOSTIC STUDIES LABORATORY: Complete blood count notable for hemoglobin 11.8, hematocrit 36. INR 1. Arterial blood gas shows pH 7.347, pCO2 of 56.8, pO2 of 78.5 on 3 liters. Comprehensive metabolic panel notable for glucose 181. Dilantin level is less than 2.5. Alcohol level less than 5. BNP 167. Troponin less than 0.05. Urinalysis notable for 2+ leukocyte esterase, 25-50 wbc's. Urine toxicology screen is negative. IMAGING: Chest x-ray shows nothing acute. CT of the head was done and showed a possible left nasopharyngeal polyp. CARDIOVASCULAR: EKG shows normal sinus rhythm with a rate of 84 beats per minute. ASSESSMENT The patient is a 56-year-old female with: 1. Jqxvd-jf-fejrqnh respiratory failure, hypoxic. 2. Chronic obstructive pulmonary disease exacerbation. The patient received Solu-Medrol in the emergency department. 3. Congestive heart failure with ejection fraction as noted above. 4. Seizures. The patient has had multiple seizures. She is reportedly taking Dilantin but Dilantin level is less than 2.5 on laboratory. 5. Urinary tract infection. 6. Diabetes. 7. Migraine headaches. 8. Hypothyroidism. 9. Hypertension. 10. Hyperlipidemia. 11. History of transient ischemic attack. 12. Gastroesophageal reflux disease. 13. Depression. 14. Diverticular disease. 15. Former smoker. 16. 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 The patient will need an ENT followup as an outpatient. PLAN 1. Admit to intermediate level. 2. 2-gram sodium, 1800 mL fluid restricted, heart healthy consistent carb diet. Unit #: [id number] #: [id number] Patient: IKE MRASH 3. Supplemental oxygen. 4. Solu-Medrol 80 mg IV q.12 h. 5. DuoNeb q.4 h. while awake and q.2 h. p.r.n. 6. Mucinex 600 mg p.o. b.i.d. 7. Strict I's and O's. 8. Daily weights. 9. Consult Dr. Smith regarding COPD exacerbation. 10. Urine culture and sensitivity on urine in the lab. 11. Rocephin 2 grams IV daily pending results of urine culture with first dose now. 12. Low-dose sliding scale insulin with Accu-Cheks. 13. Seizure precautions. 14. Consult Dr. Antony regarding multiple seizures. 15. TSH. 16. Serial cardiac enzymes. 17. Neuro checks. 18. SCDs for DVT prophylaxis. 19. Protonix for GI prophylaxis since the patient will be on Solu-Medrol. 20. Repeat labs in the morning. 21. Additional workup and consultants based on above. Dictated by Linda Vela/michael TD: 08/29/2016 20:45 JOB #: [id number] HISTORY AND PHYSICAL Page 1 of 1 X Patricia Carcamo MD X HISTORY AND PHYSICAL
--- NOTE | ~2016-08-29 | EKG ---
PATIENT: IKE MARSH UNIT #: [id number] Ventricular Rate: 84 BPM Atrial Rate: 84 BPM P-R Interval: 160 ms QRS Duration: 82 ms Q-T Interval: 382 ms QTC Calculation(Bezet): 451 ms P Austin: 60 degrees Calculated R Austin: 89 degrees Calculated T Austin: 63 degrees Diagnosis Line: Normal sinus rhythm Diagnosis Line: Nonspecific T wave abnormality Diagnosis Line: Otherwise normal ECG Diagnosis Line: When compared with ECG of 14-JUN-2016 06:08, Diagnosis Line: No significant change was found Diagnosis Line: Confirmed by HUNTER PERAZA MD ([id number]) on 08/30/2016 Diagnosis Line: 10:03:00 AM INTERPRETING MD: KARMEN WAHL
--- NOTE | ~2016-08-29 | EE ---
Unit #: [id number] #: [id number] Patient: IKE MARSH [id number] [address] [address] [id number] I MR#: [id number] NAME: IKE MARSH : 1960 SEX: F STUDY DATE/TIME: 08/30/2016 UNIT: [facility] ROOM: 576 STUDY DESCRIPTION: EEG Attending Physician: Stephanie Solitario M.D. Primary Care Physician: Marni Perez M.D. NEURODIAGNOSTICS REPORT CHIEF COMPLAINT Seizures. DESCRIPTION EEG was obtained in the awake and asleep states using the 10-20 international montage system with photic stimulation. EEG showed well organized 7 Hz range background activity from posterior regions, which was symmetric between the hemispheres. There were no epileptiform discharges present, and there were no focal signs. Response to photic stimulation was not present. Normal stage II sleep was captured during the recording. IMPRESSION Abnormal EEG consistent with mild diffuse cerebral dysfunction; however, there is no evidence for increased seizure tendency on this recording. Dictated by... Linda Santiago/aspen TD: 08/31/2016 07:55 JOB #: [id number] NEURODIAGNOSTICS REPORT Page 1 of 1 X Jeremy Hickman MD NEURODIAGNOSTICS REPORT
--- NOTE | ~2016-08-29 | CR72 ---
[facility] A Service of [facility] & [facility] RADIOLOGY TEXT RESULTS PATIENT: IKE MARSH LOCATION: [facility] 576-01 : 56 UNIT #: [id number] AGE: [address]: Patricia Carcamo MD SEX: F ORDER DR: [id number] [facility] [address] [place], [place] [address] [id number] I MR#: [id number] Acc #: [id number] NAME: IKE MARSH : 1960 SEX: F STUDY DATE/TIME: 08/29/2016 17:30 UNIT: [facility] ROOM: [facility] STUDY DESCRIPTION: CR Chest Single View Portable Attending Physician: Patricia Carcamo M.D. Ordering Physician: Myron Dye M.D. Primary Care Physician: Marni Perez M.D. MEDICAL IMAGING REPORT This report is preliminary unless electronic signature is present EXAM Portable chest 08/29/2016 HISTORY 56-year-old female with shortness of air and cough beginning 2 days ago. COMPARISON Chest 06/16/2016 FINDINGS Frontal chest demonstrates clear lungs. No pleural effusion or pneumothorax. Prominent left epicardial fat pad as compared with CT abdomen and pelvis 05/25/2016. Heart size is within normal limits. Mediastinum and pulmonary vasculature are unremarkable. IMPRESSION No acute cardiopulmonary findings. Dictated by... Jamir Araujo M.D. THIS IS AN ELECTRONICALLY VERIFIED REPORT Jamir Araujo M.D. at 08/29/2016 10:54 PM PATRICIA/jamila TD: 08/29/2016 21:49 JOB #: [id number] MEDICAL IMAGING REPORT Page 1 of 1 COPY
--- NOTE | ~2016-08-29 | BMI ---
[facility] Nutrition Therapy DATE: 08/30/16 Patient: IKE MARSH Physician: SAYRA Address: [address] [facility] Room/Bed: [address] [place] [address], Zip: [place] [address] Admit Date: 08/29/16 Date of : 56 Height: 5 3 Weight: 265 120.4 HIGH BMI NOTE: DX: 56 yo female admitted for acute on chronic respiratory failure ANTHROPOMETRICS: Ht: 5'3" Wt: 120.5 kg (265#) BMI: 47.1 INTERVENTION: 1. HH + CC + 2 gm Na RECOMMENDATIONS: 1. Continue with healthy heart + consistent carb + 2 gram sodium diet to promote gradual weight loss towards healthy BMI. RD will follow hospital course. Respectfully, Kathy Mendieta, Security Engineer Letitia Loving RD, LD [employer] and Nutritional Services [facility] cc: client file
[~2016-08-29 15:20] MED LIST changes: +ALDACTONE PO; +HUMULIN 70100 UNIT/2 SUBQ; +HUMULIN N100 UNIT/1; +KLONOPIN1 MG PO; +KLOR-CON PO; +LEVOTHYROXINE25 MCG PO; +OMNICEF300 MG PO; +ONDANSETRON HCL8 MG PO; +PRINIVIL5 MG PO; +SAXENDA3 MG/0.5 M SUBQ; +SUMATRIPTAN SUC50 MG PO
[2016-08-29 17:13] LABS: BASOPHIL# 0.1 X10e3 (0-0.3); EOSINOPHIL% 0.6 % (0.0-7.0); HEMOGLOBIN 11.8 gm/dL (12.0-16.0); LYMPHOCYTE# 2.3 X10e3 (1.0-3.5); LYMPHOCYTE% 30.9 % (17.0-45.0); MEAN CELL VOLUME 101.2 FL (83-96); MEAN CORPUSCULAR HEMOGLOBIN 33.1 PG (28-34); MEAN CORPUSCULAR HGB CONC 32.7 g/dL (30-36); MEAN PLATELET VOLUME 8.1 FL (6.5-11.5); MONOCYTE# 0.6 X10e3 (0-1.0); MONOCYTE% 8.5 % (3.0-12.0); NEUTROPHIL# 4.4 X10e3 (1.5-7.1); PLATELET COUNT 199 X10e3 (140-420); RED BLOOD COUNT 3.55 X10e (3.90-5.30); RED CELL DISTRIBUTION WIDTH 13.6 % (11.0-15.5); WHITE BLOOD COUNT 7.4 X10e3 (4.0-10.5)
[2016-08-29 17:17] LABS: DIFF IND NO
[2016-08-29 17:32] LABS: PARTIAL THROMBOPLASTIN TIME 24.2 SECONDS (23.5-31.3); PROTHROMBIN TIME (PATIENT) 10.2 SECONDS (9.6-11.5)
[2016-08-29 17:32] LABS: ARTERIAL BLD GAS O2 SATURATION 94.6 % (90.0-100.0); ARTERIAL BLOOD GAS CARBOXY HB 1.1 %sat (0.0-9.0); ARTERIAL BLOOD GAS HCO3 31.1 mmol/L; ARTERIAL BLOOD GAS pH 7.347 (7.350-7.450)
[2016-08-29 17:33] LABS: ARTERIAL BLOOD GAS PCO2 56.8 mmHg (35.0-45.0); ARTERIAL BLOOD GAS PO2 78.5 mmHg (80.0-100); ARTERIAL DRAW? YES
[2016-08-29 17:34] LABS: ARTERIAL BLOOD GAS ALLEN TEST NORMAL; ARTERIAL BLOOD GAS ART SITE RIGHT RADIAL; ARTERIAL BLOOD GAS DELIVERY NASAL CANNULA
[2016-08-29 17:44] LABS: ALBUMIN SERUM 3.6 g/dL (3.5-5.0); ALKALINE PHOSPHATASE 75 U/L (32-92); ALT (SGPT) 23 U/L (10-40); AST (SGOT) 18 U/L (10-42); BILIRUBIN,TOTAL 0.1 mg/dL (0.2-2.0); BLOOD UREA NITROGEN 15 mg/dL (9-23); BUN/CREATININE RATIO 18.75; CALCIUM SERUM 8.8 mg/dL (8.4-10.2); CARBON DIOXIDE 31 mmol/L (22-31); CHLORIDE 100 mmol/L (100-111); CREATININE SERUM 0.8 mg/dL (0.6-1.4); GLOM FILT RATE Estimated 81.3 mL/min (>60); GLUCOSE FASTING 181 mg/dL (70-110); POTASSIUM 4.1 mmol/L (3.5-5.1); PROTEIN TOTAL SERUM 6.3 g/dL (6.0-8.3); SODIUM 138 mmol/L (135-145)
[2016-08-29 17:45] LABS: ALCOHOL BLOOD <5 mg/dL (0); BILIRUBIN, DIRECT <0.1 mg/dL (0.0-0.2); DILANTIN (PHENYTOIN) <2.5 ug/mL (10.0-20.0)
[2016-08-29 18:57] LABS: POC - CKMB <1.0 ng/mL (0.0-7.9); POC - TROPONIN <0.05 ng/mL (<=0.05)
[2016-08-29 19:19] LABS: URINE SOURCE CLEAN CATCH
[2016-08-29 19:27] LABS: URINE APPEARANCE CLEAR; URINE BILIRUBIN NEG (NEG); URINE BLOOD NEG (NEG); URINE COLOR YELLOW; URINE GLUCOSE NEG (NEG); URINE KETONE TRACE (NEG); URINE LEUKOCYTE ESTERASE 2+ (NEG); URINE NITRATE NEG (NEG); URINE PROTEIN NEG (NEG); URINE SPECIFIC GRAVITY 1.024 (1.003-1.035)
[2016-08-29 19:29] LABS: POC - CKMB 1.1 ng/mL (0.0-7.9); POC - TROPONIN <0.05 ng/mL (<=0.05)
[2016-08-29 19:29] LABS: CULTURE INDICATED? YES; URBCS1 AUWI 0-2 /[HPF] (0-2); URINE BACTERIA AUWI NEG (NEGATIVE); URINE SQUAMOUS EPITHELIAL CELL NONE SEEN /[HPF]; UWBCS1 AUWI 25-50 (0-5)
[2016-08-29 19:37] LABS: AMPHETAMINE NEG (NEG); BARBITURATES NEG (NEG); BENZODIAZEPINES NEG (NEG); COCAINE NEG (NEG); MARIJUANA NEG (NEG); OPIATES NEG (NEG); TRICYCLIC ANTIDEPRESSANTS NEG (NEG); U METHADONE NEG (NEG)
[2016-08-30 02:08] LABS: CK TOTAL 32 IU/L (26-140)
[2016-08-30 05:45] LABS: BASOPHIL% 0.2 % (0-2.5); HEMATOCRIT 37.4 % (35.0-45.0); HEMOGLOBIN 12.1 gm/dL (12.0-16.0); LYMPHOCYTE# 1.1 X10e3 (1.0-3.5); LYMPHOCYTE% 17.3 % (17.0-45.0); MEAN CELL VOLUME 101.7 FL (83-96); MEAN CORPUSCULAR HEMOGLOBIN 32.9 PG (28-34); MEAN CORPUSCULAR HGB CONC 32.4 g/dL (30-36); MEAN PLATELET VOLUME 8.5 FL (6.5-11.5); MONOCYTE# 0.4 X10e3 (0-1.0); MONOCYTE% 6.7 % (3.0-12.0); NEUTROPHIL# 4.8 X10e3 (1.5-7.1); NEUTROPHIL% 75.8 % (40-75); PLATELET COUNT 194 X10e3 (140-420); RED BLOOD COUNT 3.68 X10e (3.90-5.30); RED CELL DISTRIBUTION WIDTH 13.7 % (11.0-15.5); WHITE BLOOD COUNT 6.4 X10e3 (4.0-10.5)
[2016-08-30 05:46] LABS: DIFF IND NO
[2016-08-30 06:00] LABS: PROTHROMBIN TIME (PATIENT) 10.4 SECONDS (9.6-11.5)
[2016-08-30 06:50] LABS: ALBUMIN SERUM 3.7 g/dL (3.5-5.0); BILIRUBIN,TOTAL 0.2 mg/dL (0.2-2.0); CALCIUM SERUM 8.9 mg/dL (8.4-10.2); GLOM FILT RATE Estimated 62.1 mL/min (>60); POTASSIUM 4.8 mmol/L (3.5-5.1); PROTEIN TOTAL SERUM 6.8 g/dL (6.0-8.3)
[2016-08-30 08:53] LABS: CK TOTAL 33 IU/L (26-140)
[2016-08-31 06:46] LABS: HEMOGLOBIN 11.5 gm/dL (12.0-16.0); MEAN CELL VOLUME 101.3 FL (83-96); MEAN CORPUSCULAR HEMOGLOBIN 33.4 PG (28-34); MEAN PLATELET VOLUME 8.7 FL (6.5-11.5); RED BLOOD COUNT 3.45 X10e (3.90-5.30); RED CELL DISTRIBUTION WIDTH 13.5 % (11.0-15.5); WHITE BLOOD COUNT 9.1 X10e3 (4.0-10.5)
[2016-08-31 07:26] LABS: ALBUMIN SERUM 3.6 g/dL (3.5-5.0); BILIRUBIN,TOTAL 0.3 mg/dL (0.2-2.0); BUN/CREATININE RATIO 24.44; CALCIUM SERUM 8.9 mg/dL (8.4-10.2); CREATININE SERUM 0.9 mg/dL (0.6-1.4); DILANTIN (PHENYTOIN) 5.9 ug/mL (10.0-20.0); GLOM FILT RATE Estimated 70.5 mL/min (>60); POTASSIUM 4.3 mmol/L (3.5-5.1); PROTEIN TOTAL SERUM 6.5 g/dL (6.0-8.3)
[2016-09-01 07:07] LABS: HEMATOCRIT 35.2 % (35.0-45.0); HEMOGLOBIN 11.8 gm/dL (12.0-16.0); MEAN CELL VOLUME 100.2 FL (83-96); MEAN CORPUSCULAR HEMOGLOBIN 33.6 PG (28-34); MEAN CORPUSCULAR HGB CONC 33.6 g/dL (30-36); MEAN PLATELET VOLUME 8.4 FL (6.5-11.5); RED BLOOD COUNT 3.52 X10e (3.90-5.30); RED CELL DISTRIBUTION WIDTH 13.5 % (11.0-15.5); WHITE BLOOD COUNT 8.3 X10e3 (4.0-10.5)
[2016-09-01 07:54] LABS: BUN/CREATININE RATIO 32.5; CALCIUM SERUM 8.6 mg/dL (8.4-10.2); CREATININE SERUM 0.8 mg/dL (0.6-1.4); GLOM FILT RATE Estimated 81.3 mL/min (>60); POTASSIUM 3.9 mmol/L (3.5-5.1)
[2016-09-01] MEDS ORDERED: FIORICET 50-301 EACH PO (14:09)
[2016-09-01] MEDS ORDERED: PREDNISONE10 M1 PO (14:11)
[2017-01-11] MEDS ORDERED: PHENERGAN25 MG PO (21:28)
== END 2016-09-01 15:05 | disposition home or self-care (01) | DRG 189 ==
LOC: CED 15:20 → C5C 19:50 → CEDOF 19:50 → CED 20:04 → CEDOF 21:32 → C5C 21:32
PROVIDERS: Emergency Medicine; Family Medicine; Internal Medicine
DX: J96.21 Acute and chronic respiratory failure with hypoxia (principal); G92 Toxic encephalopathy; I11.0 Hypertensive heart disease with heart failure; I50.22 Chronic systolic (congestive) heart failure; R56.9 Unspecified convulsions; E11.65 Type 2 diabetes mellitus with hyperglycemia; J44.1 Chronic obstructive pulmonary disease with (acute) exacerbation; Z68.42 Body mass index [BMI] 45.0-49.9, adult; N39.0 Urinary tract infection, site not specified; J96.22 Acute and chronic respiratory failure with hypercapnia; Z87.891 Personal history of nicotine dependence; E66.01 Morbid (severe) obesity due to excess calories; Z79.4 Long term (current) use of insulin; G43.909 Migraine, unspecified, not intractable, without status migrainosus; E78.5 Hyperlipidemia, unspecified; K21.9 Gastro-esophageal reflux disease without esophagitis; Z86.73 Personal history of transient ischemic attack (TIA), and cerebral infarction without residual deficits; F32.9 Major depressive disorder, single episode, unspecified; J33.0 Polyp of nasal cavity; Z90.49 Acquired absence of other specified parts of digestive tract; Z90.710 Acquired absence of both cervix and uterus
CPT/HCPCS: 36415; 36600; 70450; 71010; 80048; 80053; 80076; 80185; 80307; 81003; 82308; 82550; 82553; 82803; 82947; 83880; 84443; 84484; 85025; 85027; 85610; 85730; 87070; 87086; 87633; 93005; 94640; 94664; 94760; 95816; 96374; 99285; G0480; J0696; J1165; J1815; J1940; J2270; J2405; J2930

== ENCOUNTER 2016-11-08 17:44 | Emergency (ER) | payer MEDICARE, OTHER ==
[~2016-11-08] VITALS: Ht 160 cm; Wt 108.9 kg
--- NOTE | ~2016-11-08 | CR72 ---
[facility] A Service of [facility] RADIOLOGY TEXT RESULTS PATIENT: IKE MARSH LOCATION: [facility] : 56 UNIT #: [id number] AGE: [address]: Odell Carmen MD SEX: F ORDER DR: [id number] [facility] [address] [place], [place] [address] [id number] MR#: [id number] Acc #: [id number] NAME: IKE MARSH : 1960 SEX: F STUDY DATE/TIME: 11/08/2016 21:18 UNIT: [facility] ROOM: STUDY DESCRIPTION: CR Chest Single View Portable Attending Physician: Odell Carmen M.D. Ordering Physician: Odell Carmen M.D. Primary Care Physician: Marni Perez M.D. MEDICAL IMAGING REPORT This report is preliminary unless electronic signature is present EXAM Portable chest 11/08/2016 HISTORY 56-year-old female with shortness of air beginning 4 days ago. COMPARISON Chest 08/29/2016 FINDINGS Frontal chest demonstrates mild cardiomegaly. Mediastinum and pulmonary vasculature unremarkable. Lungs appear clear. No pneumothorax. IMPRESSION Mild cardiomegaly. No other acute chest findings Dictated by... Jamir Araujo M.D. THIS IS AN ELECTRONICALLY VERIFIED REPORT Jamir Araujo M.D. at 11/09/2016 10:05 AM PATRICIA/yelena TD: 11/09/2016 05:14 JOB #: [id number] MEDICAL IMAGING REPORT Page 1 of 1 COPY
[~2016-11-08 17:44] MED LIST changes: +FIORICET 50-301 EACH PO; +PREDNISONE10 M1 PO
[2016-11-08 20:45] LABS: BASOPHIL% 0.7 % (0-2.5); EOSINOPHIL# 0.1 X10e3 (0-0.7); EOSINOPHIL% 2.2 % (0.0-7.0); HEMATOCRIT 35.7 % (35.0-45.0); HEMOGLOBIN 11.6 gm/dL (12.0-16.0); LYMPHOCYTE# 1.5 X10e3 (1.0-3.5); LYMPHOCYTE% 23.8 % (17.0-45.0); MEAN CELL VOLUME 102.1 FL (83-96); MEAN CORPUSCULAR HEMOGLOBIN 33.3 PG (28-34); MEAN CORPUSCULAR HGB CONC 32.6 g/dL (30-36); MEAN PLATELET VOLUME 7.4 FL (6.5-11.5); MONOCYTE# 0.4 X10e3 (0-1.0); MONOCYTE% 6.1 % (3.0-12.0); NEUTROPHIL# 4.2 X10e3 (1.5-7.1); NEUTROPHIL% 67.2 % (40-75); PLATELET COUNT 146 X10e3 (140-420); RED CELL DISTRIBUTION WIDTH 14.4 % (11.0-15.5); WHITE BLOOD COUNT 6.2 X10e3 (4.0-10.5)
[2016-11-08 20:49] LABS: DIFF IND NO
[2016-11-08 21:09] LABS: ALBUMIN SERUM 3.4 g/dL (3.5-5.0); BILIRUBIN, DIRECT 0.1 mg/dL (0.0-0.2); BILIRUBIN,INDIRECT 0.6 mg/dL (0.0-0.9); BILIRUBIN,TOTAL 0.7 mg/dL (0.2-2.0); BUN/CREATININE RATIO 17.14; CALCIUM SERUM 8.7 mg/dL (8.4-10.2); CREATININE SERUM 0.7 mg/dL (0.6-1.4); GLOM FILT RATE Estimated 95.5 mL/min (>60); POTASSIUM 3.9 mmol/L (3.5-5.1); PROTEIN TOTAL SERUM 6.1 g/dL (6.0-8.3)
[2017-01-11] MEDS ORDERED: PHENERGAN25 MG PO (21:28)
[2017-01-17] MEDS ORDERED: SAXENDA3 MG/0.5 M (12:42)
[2017-01-17] MEDS ORDERED: FIORICET 50-301 EACH PO (12:44)
[2017-01-17] MEDS ORDERED: COREG PO (12:54)
[2017-01-17] MEDS ORDERED: ALDACTONE PO (12:55)
[2017-01-17] MEDS ORDERED: PREDNISONE10 MG PO (12:58)
[2017-01-17] MEDS ORDERED: SILDENAFIL20 MG PO (12:58)
== END 2016-11-08 22:22 | disposition home or self-care (01) ==
LOC: CED 17:44
PROVIDERS: Emergency Medicine
DX: R60.0 Localized edema (principal); B02.9 Zoster without complications; I11.0 Hypertensive heart disease with heart failure; I50.9 Heart failure, unspecified; E11.9 Type 2 diabetes mellitus without complications; J44.9 Chronic obstructive pulmonary disease, unspecified; K21.9 Gastro-esophageal reflux disease without esophagitis; Z90.49 Acquired absence of other specified parts of digestive tract; Z90.710 Acquired absence of both cervix and uterus; Z79.4 Long term (current) use of insulin; Z79.82 Long term (current) use of aspirin; Z79.899 Other long term (current) drug therapy
CPT/HCPCS: 36415; 71010; 80048; 80076; 83880; 85025; 96374; 99285; J1940